=== PATIENT | female | born 1985 | race Caucasian/White ===

== ENCOUNTER 2019-02-03 14:32 | Emergency (ER) | payer MEDICAID ==
[~2019-02-03] VITALS: Ht 157.5 cm; Wt 90.0 kg
[~2019-02-03 14:32] MED LIST: AMOX1TAB10 PO; IBUP-1561 PO
[2019-02-03 14:35] VITALS: BP 143/84; PULSE 84; RESP 18; Ht 157.5 cm; Wt 90.0 kg
== END 2019-02-03 15:37 | disposition home or self-care (01) ==
LOC: E/R 14:32
DX: O86.00 Infection of obstetric surgical wound, unspecified (principal); B96.89 Other specified bacterial agents as the cause of diseases classified elsewhere
CPT/HCPCS: 99283